=== PATIENT | male | born 1970 | race Caucasian/White ===

== ENCOUNTER 2025-08-31 20:04 | Emergency (ER) | payer OTHER, SELFPAY ==
[2025-08-31 20:07] VITALS: BP 132/79
[2025-08-31 20:47] VITALS: BMI 23.1
--- NOTE | 2025-08-31 21:14 | ED.GENMED ---
History of Present Illness
General
Chief Complaint: Crisis Evaluation
Source: patient and spouse
Exam Limitations: none
Time Seen by Provider: 08/31/25 20:30
Nursing documentation reviewed up to this point in time: agreed with
History of Present Illness
History of Present Illness:
55-year-old male history of anxiety and depression not on current therapy scheduled see PCP after the holiday, nondrinker non-smoker has had some stress at his work, became increasingly depressed crying out anxious, thoughts of harming himself with
no specific plan was on Wellbutrin earlier in life not now apparently does not tolerate SSRIs very well,
Past History
Past History
ED Past Medical History: Psychiatric
Social History
Tobacco: Non-smoker
Alcohol: None
Drug: None
Personal:
Living: with family
Employment: Employed
Review of Systems
Review of Systems
Other source history: family
All Other Systems: Not applicable
Constitutional: Reports sleep disturbance
Psychiatric: Reports depression and anxiety; Denies suicidal
Phy Exam
Physical Exam
Physical Exam:
Physical Exam
General: no apparent distress, not acutely ill
Neck: No jaundice
Heart: Regular
Lungs: no acute respiratory distress.
Neuro: alert and oriented. no focal neurological deficits
Skin: no rash
Psychiatric: Calm cooperative admits to depression denies being suicidal now not hallucinating
Extremities: no edema.
Course
Orders/Labs/Results
Orders:
Orders
08/31/25 20:09
Crisis Consult Urgent
Reason for Consult: depression/SI
08/31/25 21:14
Lorazepam [Ativan] 1 mg PO NOW STA
Vital Signs
Initial and Last Documented VS:
Initial Vital Signs
Temp Pulse Resp BP Pulse Ox
97.8 F 80 18 132/79 99
08/31/25 20:07 08/31/25 20:07 08/31/25 20:07 08/31/25 20:07 08/31/25 20:07
Last Documented Vital Signs
Temp Pulse Resp BP Pulse Ox
97.8 F 64 16 130/88 98
08/31/25 20:07 08/31/25 21:45 08/31/25 21:45 08/31/25 21:45 08/31/25 21:45
MDM/Problems Addressed
Differential Diagnosis Includes:
Anxiety depression suicidal ideation not suicidal now
Chronic conditions affecting care:
Anxiety
Chronic conditions affecting care: Psychiatric illness
Acute Exacerbation and/or Progression of Chronic Illness:
Anxiety
Acute Exacerbation and/or Progression of Chronic Illness: Psychiatric illness
*Pulse Oximetry
SaO2: 99
Oxygen Mode of Delivery: Room air
Patient hypoxic: no
*Critical Care Note
Total Time (30-74mins, 75-104mins- exclusive of procedures): Not Applicable
Update Note
Update Note:
Update seen by crisis, cleared for outpatient has no specific suicidal plan, not actively suicidal now Long conversation with patient and his he like some time off work like to be restarted on his meds would like some Ativan
ED Attending Note
-
Portions of this chart may have been created with voice recognition software.� Occasional wrong word or��sound alike� substitutions may have occurred due to the inherent limitations of voice recognition software.
Discharge Plan
Departure
Patient Disposition: Home (Routine Discharge)
Date of Disposition: 08/31/25
Time of Disposition: 21:14
Patient with high blood pressure during this ER visit?: No
Condition: Good
Discharge Problem:
Depressed, Anxiety
Instructions: Depression, Adult (DC), Anxiety, Adult (DC)
Prescriptions:
New
bupropion HCl 75 mg tablet
150 mg PO BID Qty: 30 2RF
lorazepam [Ativan] 1 mg tablet
1 mg PO HS PRN (Reason: anxiety) Qty: 10 0RF
lorazepam [Ativan] 1 mg tablet
1 mg PO HS PRN (Reason: agitation) Qty: 10 0RF
Stand Alone Forms: Return to Work
Interventions
Interventions:
*General Assessment Last Done: 08/31/25 20:47
*Neglect/Abuse Screening Last Done: 08/31/25 20:07
*ED COVID-19 Vaccine History Last Done: 08/31/25 20:47
*ED Influenza Vaccine History Last Done: 08/31/25 20:47
[facility] Risk Assessment Tool Last Done: 08/31/25 20:47
*Risk Screen - Suicide (C-SSRS) Last Done: 08/31/25 20:07
*Nursing Disposition Last Done: 08/31/25 21:45
ED-Psychological Assessment Last Done: 08/31/25 20:47
Discharge Date and Time
Discharge Date/Time: 08/31/25 21:45
Print Language: MOLDOVAN
[2025-08-31] MEDS: ATIVAN 1 MG PO (21:28)
[2025-08-31 21:44] VITALS: BP 130/88
[2025-08-31 21:45] VITALS: BP 130/88
== END 2025-08-31 21:45 | disposition home or self-care (01) ==
LOC: EMR 20:04
PROVIDERS: EMERGENCY PHYSICIAN Emergency Medicine; FAMILY PHYSICIAN Internal Medicine
DX: F32.A Depression, unspecified (principal); F41.9 Anxiety disorder, unspecified; Z56.6 Other physical and mental strain related to work
CPT/HCPCS: 99283